=== PATIENT | female | born 1950 | race Caucasian/White ===

== ENCOUNTER → 2016-06-23 | Outpatient (CLI) | payer OTHER, MEDICARE ==
[~2016-06-23] MED LIST: ALEVE PO; AUGM875T27 PO; CITA20TA4 PO; GAS80CHW PO; NEUR300C PO; NEUR600T PO; NORC7.5T PO; NORCOTAB PO; ONDA1TAB15 PO; ONDA4INJ48 IM; SALI0.653; TYLE325T5 PO; ZYRT10TA2 PO; [UNRECOGNIZED DRUG - CODE] PO
--- NOTE | 2016-07-08 00:20 | ECWPNPC ---
PATIENT NAME: MITZY ESPINOZA : 1950 GENDER: FEMALE VISIT DATE: 06/23/2016 DISCHARGE DATE: 06/23/16 1148 VISIT LOCKED DATE TIME: PHYSICIAN: BRADY SANDOVAL RESOURCE: BRADY SANDOVAL REASON FOR APPOINTMENT 1. WC, BACK HISTORY OF PRESENT ILLNESS HISTORY OF PRESENT ILLNESS: PAIN THE PATIENT DESCRIBES THE PAIN... THE PATIENT DESCRIBES THE PAIN... THE PATIENT DESCRIBES THE PAIN... THE PATIENT DESCRIBES THE PAIN... MITZY IS A 65-YEAR-OLD FEMALE HERE FOR FOLLOW-UP AND MEDICINE MANAGEMENT OF CHRONIC LOW BACK PAIN. HAD LESI ON 09/04/2015. REPORTED SIGNIFICANT IMPROVEMENT IN PAIN POSTPROCEDURE UNTIL A FEW MOS AGO AND NOW PAIN IS 6/10 VAS. DESCRIBES PAIN RIGHT-SIDED LOW BACK PAIN THAT IS CONSTANT THROBBING AND TENDER. PAIN IS AGGRAVATED BY PROLONGED STANDING. PAIN IS RELIEVED WITH CURRENT MEDICINE REGIMEN OF HYDROCODONE 10/07/2024 PERIODICALLY AND GABAPENTIN 300 MG 1 IN THE MORNING, 1 AT 12 NOON AND 2 AT AT BEDTIME. CHRONIC PAIN WE ARE TREATING ON A REGULAR BASIS IS DUE TO WORK RELATED INJURY. DOI-2001. FALL RISK SCREENING: SCREENING :NO FALLS IN THE PAST YEAR CURRENT MEDICATIONS TAKING TUMS DIRECTED FOR HEARTBURN TAKING LISINOPRIL 20 MG TABLET 1 TABLET ORALLY ONCE A DAY TAKING GAS-X 80 MG TABLET CHEWABLE 1 TABLET AFTER MEALS AND AT BEDTIME NEEDED ORALLY FOUR TIMES A DAY TAKING GABAPENTIN 300 MG CAPSULE 1 CAPSULE ORALLY DIRECTED - 1 IN AM, 1 IN AFTERNOON, 2 AT BEDTIME TAKING HYDROCODONE-ACETAMINOPHEN 5-325 MG TABLET 1 TABLET P.O. Q6H PRN PAIN MDD2 NOT-TAKING ZOFRAN ODT 4 MG TABLET DISPERSIBLE 1 TAB(S) ORALLY TID PRN, NOTES: LAST DOSE 09/03/15 1330 NOT-TAKING ROLAIDS NOT-TAKING FLONASE 50 MCG/DOSE INHALER 1 SPRAY IN EACH NOSTRIL NASALLY BID NOT-TAKING ZYRTEC ALLERGY 10 MG TABLET 1 TABLET NEEDED ORALLY ONCE A DAY NOT-TAKING PATANOL 0.1 % SOLUTION 1 DROP INTO AFFECTED EYES BILATERALLY OPHTHALMIC TWICE A DAY NOT-TAKING CELEXA 10 MG TABLET 1 TAB(S) AT NIGHT ORALLY ONCE A DAY NOT-TAKING TRIAMCINOLONE ACETONIDE 0.1 % CREAM 1 APPLICATION TO AFFECTED AREAS BUTTOCKS, BELOW ABDOMEN, THIGHS EXTERNALLY TWICE A DAY UNTIL 2 DAYS AFTER RASH CLEARS NOT-TAKING CLOTRIMAZOLE 1 % CREAM 1 APPLICATION TO AFFECTED AREAS BUTTOCKS, BELOW ABDOMEN, THIGHS EXTERNALLY TWICE A DAY UNTIL 2 DAYS AFTER RASH CLEARS MEDICATION LIST REVIEWED AND RECONCILED WITH THE PATIENT PAST MEDICAL HISTORY CROHN'S DISEASE IBS ASTHMA HYPERTENSION MIGRAINES DEPRESSION ARTHRITIS 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 NEW PATIENT PAIN DIARY TODAY'S VISITNOTES FROM 0-10, WHAT LEVEL IS YOUR PAIN TODAY?0 PAIN CLINIC PFS, CLERGY, PUBLIC HEALTH REFERRALS PFS REFERRAL NEEDED?NO CLERGY REFERRAL NEEDED?NO PUBLIC HEALTH REFERRAL NEEDED?NO WAS THE PROVIDER NOTIFIED OF ANY PERTINENT INFO?NO PFS REFERRAL NEEDED?NO CLERGY REFERRAL NEEDED?NO PUBLIC HEALTH REFERRAL NEEDED?NO WAS THE PROVIDER NOTIFIED OF ANY PERTINENT INFO?NO REVIEW OF SYSTEMS CONSTITUTIONAL: ANY CHANGE IN YOUR MEDICAL CONDITION? NO . CHILLS NO . FEVER NO . INFECTION: DO YOU HAVE NEW INFECTIONS? NO . DO YOU HAVE HISTORY OF MRSA? NO . MUSCULOSKELETAL: ANY NEW PATTERNS OF PAIN OR NUMBNESS? NO . GASTROENTEROLOGY: ANY NEW CHANGE IN BOWEL CONTROL? NO . GENITOURINARY: ANY NEW CHANGE IN BLADDER CONTROL? NO . IS THERE A CHANCE YOU COULD BE ? NO . HEMATOLOGY/LYMPH: DO YOU TAKE ANY BLOOD THINNERS? (FOR EXAMPLE- COUMADIN, PLAVIX, AGGRENOX, PLATEL, PRADAXA, OR XARELTO) NO . WHEN WAS YOUR LAST DOSE? DATE: TIME: . NEUROLOGY: HAVE YOU FALLEN IN THE PAST 6 MONTHS? NO . ANY NEW EXTREMITY NUMBNESS OR WEAKNESS? NO . CARDIOLOGY: DO YOU HAVE A PACEMAKER OR DEFIBRILLATOR? NO . RESPIRATORY: HAVE YOU BEEN SICK IN THE PAST WEEK? YES, COUGH AND COLD . FEVER NO . FLU LIKE SYMPTOMS? NO . COUGH YES . INTEGUMENTARY: DO YOU HAVE ANY RASHES OR OPEN SORES? NO . ALLERGIC/IMMUNO: ARE YOU ALLERGIC TO SHELLFISH OR IV DYE? YES, SHRIMP . ANY NEW ALLERGIES? NO . PSYCHIATRIC: DO YOU HAVE THOUGHTS OF HURTING YOURSELF OR SOMEONE ELSE? NO . ARE YOU ABUSED, NEGLECTED, OR IN AN UNSAFE ENVIRONMENT? NO . ENDOCRINOLOGY: ARE YOU DIABETIC? NO . OTHER: DO YOU NEED ANY PRESCRIPTIONS? NO . IF YES, PLEASE LIST: ____ . ANY NEW PROBLEMS WITH YOUR MEDICATIONS? NO . WHEN DID YOU LAST EAT? ____ . WHEN DID YOU LAST DRINK? ____ . WHAT DID YOU LAST DRINK? ____ . NAME OF PERSON DRIVING YOU HOME? ____ . DO YOU HAVE ANY OTHER QUESTIONS OR CONCERNS NO . REVIEWED BY: PROVIDER: BRADY ANDRES . VITAL SIGNS WT 197.0 LBS, HT 63 IN, BMI 34.89 INDEX, BP 142/84 MM HG, HR 109 /MIN, RR 16 /MIN, TEMP 98.1 F, OXYGEN SAT % 100%, NA INITIALS SC 10:48, REVIEWED BY: CS. EXAMINATION GENERAL EXAMINATION: LUNGS:LUNG SOUNDS ARE CLEAR. HEART:HEART RATE REGULAR. MUSCULOSKELETAL:*. MUSCULOSKELETAL:*, MUSCLE STRENGTH TESTING 5/5 BILATERAL, PALPATION: POSITIVE FOR PAIN OVER L/S SPINE. POSITIVE FOR PAIN OVER L/S PARSPINALS. ASSESSMENTS LOW BACK PAIN OF OVER 3 MONTHS DURATION - M54.5 (PRIMARY) LUMBAR RADICULOPATHY - M54.16 CHRONIC PRESCRIPTION OPIATE USE - Z79.891 TREATMENT LOW BACK PAIN OF OVER 3 MONTHS DURATION CAUDAL/LUMBAR EPIDURAL NOTES: PATIENT REFUSED ANY INFORMATION REGUARDING LUMBAR EPIDURALS DUE TO THE FACT SHE HAS HAD EPIDURALS IN THE PAST. LUMBAR RADICULOPATHY CAUDAL/LUMBAR EPIDURAL PROCEDURES PN WORKMANS' COMP OPINION IN YOUR OPINION, WAS THE INCIDENT THAT THE PATIENT DESCRIBED THE COMPETENT MEDICAL CAUSE OF THIS INJURY/ILLNESS? YES ARE THE PATIENT'S COMPLAINTS CONSISTENT WITH HIS/HER HISTORY OF THE INJURY/ILLNESS? YES IS THE PATIENT'S HISTORY OF THE INJURY/ILLNESS CONSISTENT WITH YOUR OBJECTIVE FINDING? YES WHAT IS THE PERCENTAGE OF TEMPORARY IMPAIRMENT? MODERATE TO MARKED = 66.7% IS THE PATIENT WORKING? NO DOCTOR ON SITE: TAMIKA HUANG MD PROCEDURE CODES FA211 ESTABILISHED PATIENT [facility] FAC[facility] CHARGE FOLLOW UP 2WK POST (REASON: W/C LESI) ELECTRONICALLY SIGNED BY MCKENNA REARDON ON 07/07/2016 AT 05:04 PM EST DISCLAIMER : THIS IS A VISIT SUMMARY EXTRACTED FROM THE [employer] CHART. IT IS NOT A COPY OF THE [employer] PROGRESS NOTE. ANGIE
== END ==
LOC: M PAIN 10:40
PROVIDERS: ATTEND Nurse Practitioner Family
DX: M54.16 Radiculopathy, lumbar region (principal); G89.29 Other chronic pain; Z79.891 Long term (current) use of opiate analgesic; Z79.899 Other long term (current) drug therapy; Z91.013 Allergy to seafood; Z91.038 Other insect allergy status; Z91.09 Other allergy status, other than to drugs and biological substances

== ENCOUNTER → 2016-07-17 | Outpatient (CLI) | payer OTHER, MEDICARE ==
[~2016-07-17] MED LIST changes: +ISOVUE-M 300 61% 15ML VIAL (Q9967) As Ordered ONE; +LIDOCAINE 1% SDV INJ 30 ML VIAL As Ordered ONE; +methylPREDNISolone SUSP 40 MG/ML (DEPO-medrol) VIAL (J1030) As Ordered ONE
--- NOTE | 2016-07-17 13:01 | REP ---
Partial lumbar spine series: Three views. History: Lumbar epidural steroid injection for pain. 22 seconds of fluoroscopy time is reported. Findings: A sequence of three last image hold fluoroscopically obtained intraprocedural spot radiographs of the lumbar spine document needle position associated with lumbar epidural steroid injection. Signed by Anthony Christian MD 07/17/2016 02:59 P
--- NOTE | 2016-07-23 00:56 | ECWPNPC ---
PATIENT NAME: MITZY ESPINOZA : 1950 GENDER: FEMALE VISIT DATE: 07/17/2016 DISCHARGE DATE: 07/17/16 1213 VISIT LOCKED DATE TIME: PHYSICIAN: TAMIKA ANTONIO RESOURCE: TAMIKA ANTONIO REASON FOR APPOINTMENT 1. LUMBAR EPIDURAL HISTORY OF PRESENT ILLNESS HISTORY OF PRESENT ILLNESS: PAIN THE PATIENT DESCRIBES THE PAIN... FALL RISK SCREENING: SCREENING :TWO OR MORE FALLS WITH INJURY IN THE PAST YEAR CURRENT MEDICATIONS TAKING TUMS DIRECTED FOR HEARTBURN, NOTES: NONE RECENTLY TAKING LISINOPRIL 20 MG TABLET 1 TABLET ORALLY ONCE A DAY, NOTES: 07/17/16 023 TAKING GAS-X 80 MG TABLET CHEWABLE 1 TABLET AFTER MEALS AND AT BEDTIME NEEDED ORALLY FOUR TIMES A DAY, NOTES: 07/16/16 143 TAKING GABAPENTIN 300 MG CAPSULE 1 CAPSULE ORALLY DIRECTED - 1 IN AM, 1 IN AFTERNOON, 2 AT BEDTIME, NOTES: 07/17/16 023 TAKING HYDROCODONE-ACETAMINOPHEN 5-325 MG TABLET 1 TABLET P.O. Q6H PRN PAIN MDD2, NOTES: 07/17/16 0230 NOT-TAKING ZOFRAN ODT 4 MG TABLET DISPERSIBLE 1 TAB(S) ORALLY TID PRN, NOTES: LAST DOSE 09/03/15 1330 NOT-TAKING ROLAIDS NOT-TAKING FLONASE 50 MCG/DOSE INHALER 1 SPRAY IN EACH NOSTRIL NASALLY BID NOT-TAKING ZYRTEC ALLERGY 10 MG TABLET 1 TABLET NEEDED ORALLY ONCE A DAY NOT-TAKING PATANOL 0.1 % SOLUTION 1 DROP INTO AFFECTED EYES BILATERALLY OPHTHALMIC TWICE A DAY NOT-TAKING CELEXA 10 MG TABLET 1 TAB(S) AT NIGHT ORALLY ONCE A DAY NOT-TAKING TRIAMCINOLONE ACETONIDE 0.1 % CREAM 1 APPLICATION TO AFFECTED AREAS BUTTOCKS, BELOW ABDOMEN, THIGHS EXTERNALLY TWICE A DAY UNTIL 2 DAYS AFTER RASH CLEARS NOT-TAKING CLOTRIMAZOLE 1 % CREAM 1 APPLICATION TO AFFECTED AREAS BUTTOCKS, BELOW ABDOMEN, THIGHS EXTERNALLY TWICE A DAY UNTIL 2 DAYS AFTER RASH CLEARS MEDICATION LIST REVIEWED AND RECONCILED WITH THE PATIENT PAST MEDICAL HISTORY CROHN'S DISEASE IBS ASTHMA HYPERTENSION MIGRAINES DEPRESSION ARTHRITIS 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 NEW PATIENT PAIN DIARY TODAY'S VISITNOTES FROM 0-10, WHAT LEVEL IS YOUR PAIN TODAY?0 PAIN CLINIC PFS, CLERGY, PUBLIC HEALTH REFERRALS PFS REFERRAL NEEDED?NO CLERGY REFERRAL NEEDED?NO PUBLIC HEALTH REFERRAL NEEDED?NO WAS THE PROVIDER NOTIFIED OF ANY PERTINENT INFO?NO PFS REFERRAL NEEDED?NO CLERGY REFERRAL NEEDED?NO PUBLIC HEALTH REFERRAL NEEDED?NO WAS THE PROVIDER NOTIFIED OF ANY PERTINENT INFO?NO HOSPITALIZATION/MAJOR DIAGNOSTIC PROCEDURE ABOVE SURGERIES NUMEROUS HOSPITALIZATIONS FOR CROHN'S CHILDBIRTH X3 REVIEW OF SYSTEMS CONSTITUTIONAL: ANY CHANGE IN YOUR MEDICAL CONDITION? NO . CHILLS NO . FEVER NO . INFECTION: DO YOU HAVE NEW INFECTIONS? NO . DO YOU HAVE HISTORY OF MRSA? NO . MUSCULOSKELETAL: ANY NEW PATTERNS OF PAIN OR NUMBNESS? NO . GASTROENTEROLOGY: ANY NEW CHANGE IN BOWEL CONTROL? NO . GENITOURINARY: ANY NEW CHANGE IN BLADDER CONTROL? NO . IS THERE A CHANCE YOU COULD BE ? NO . HEMATOLOGY/LYMPH: DO YOU TAKE ANY BLOOD THINNERS? (FOR EXAMPLE- COUMADIN, PLAVIX, AGGRENOX, PLATEL, PRADAXA, OR XARELTO) NO . WHEN WAS YOUR LAST DOSE? DATE: TIME: . NEUROLOGY: HAVE YOU FALLEN IN THE PAST 6 MONTHS? YES . ANY NEW EXTREMITY NUMBNESS OR WEAKNESS? NO . CARDIOLOGY: DO YOU HAVE A PACEMAKER OR DEFIBRILLATOR? NO . RESPIRATORY: HAVE YOU BEEN SICK IN THE PAST WEEK? NO . FEVER NO . FLU LIKE SYMPTOMS? NO . COUGH NO . INTEGUMENTARY: DO YOU HAVE ANY RASHES OR OPEN SORES? NO . ALLERGIC/IMMUNO: ARE YOU ALLERGIC TO SHELLFISH OR IV DYE? NO . ANY NEW ALLERGIES? NO . PSYCHIATRIC: DO YOU HAVE THOUGHTS OF HURTING YOURSELF OR SOMEONE ELSE? NO . ARE YOU ABUSED, NEGLECTED, OR IN AN UNSAFE ENVIRONMENT? NO . ENDOCRINOLOGY: ARE YOU DIABETIC? NO . OTHER: DO YOU NEED ANY PRESCRIPTIONS? NO . IF YES, PLEASE LIST: ____ . ANY NEW PROBLEMS WITH YOUR MEDICATIONS? NO . WHEN DID YOU LAST EAT? 1830 . WHEN DID YOU LAST DRINK? 2299 . WHAT DID YOU LAST DRINK? WATER . NAME OF PERSON DRIVING YOU HOME? VIRGILIO KAUFMAN . DO YOU HAVE ANY OTHER QUESTIONS OR CONCERNS NO . REVIEWED BY: PROVIDER: . VITAL SIGNS WT 197 LBS, HT 63 IN, BMI 34.89 INDEX, BP 155/84 MM HG, HR 85 /MIN, RR 16 /MIN, TEMP 97.9 F, OXYGEN SAT % 96, NA INITIALS TL 1048, REVIEWED BY: LS. ASSESSMENTS INTERVERTEBRAL DISC DISORDERS WITH RADICULOPATHY, LUMBOSACRAL REGION - M51.17 (PRIMARY) TREATMENT OTHERS REFILL HYDROCODONE-ACETAMINOPHEN TABLET, 5-325 MG, 1 TABLET, P.O., Q6H PRN PAIN MDD2, 30 DAY(S), 60, REFILLS 0, NOTES: 07/17/16 0230 PROCEDURES PRE PROCEDURE DIAGNOSIS LUMBOSACRAL DISC DISORDER WITH RADICULOPATHY, LUMBOSACRAL RADICULOPATHY POST PROCEDURE DIAGNOSIS LUMBOSACRAL RADICULOPATHY , LUMBOSACRAL DISC DISORDER WITH RADICULOPATHY PROCEDURE L5-S1 EPIDURAL STEROID INJECTION UNDER FLUOROSCOPIC GUIDANCE SURGEON DR. TAMIKA ANTONIO FIRE CAPTAIN MARINE NONE ANESTHESIA LOCAL PRE PROCEDURE NOTE THE PATIENT HAS A HISTORY OF CHRONIC LOW BACK PAIN. I EVALUATE THE PATIENT AND REVIEWED THE CHART. I WENT OVER THE RISKS, ALTERNATIVES, AND BENEFITS ASSOCIATED WITH THIS PROCEDURE. THE PATIENT WOULD LIKE TO PROCEED AND GIVE CONSENT TO PERFORMED THE PROCEDURE. THE PATIENT DENIES UNEXPLAINABLE WEIGHT LOSS, FEVER, CHILLS, OR NEW CHANGES IN URINARY OR BOWEL CONTROL. DESCRIPTION OF PROCEDURE THE PATIENT WAS BROUGHT TO THE PROCEDURE ROOM AND PLACED IN THE PRONE POSITION. THE LUMBOSACRAL AREA WAS CLEANED WITH BETADINE SOLUTION AND DRAPED ASEPTICALLY. THE PROCEDURE WAS DONE UNDER STERILE CONDITIONS. I CHECKED LATERALITY AND THE LEVEL WHERE THE PROCEDURE WAS GOING TO BE PERFORMED WITH THE PATIENT AND THE SUPPORTING STAFF AT THE MOMENT OF THE TIME OUT IN THE PROCEDURE ROOM. UNDER FLUOROSCOPIC GUIDANCE, THE TARGET POINT WAS SELECTED AT THE INTERLAMINAR LEVEL OF L5-S1. LIDOCAINE WAS USED TO NUMB THE SKIN AND THE SUBCUTANEOUS TISSUE BELOW IT. EPIDURAL TUOHY NEEDLE, 17-GAUGE, WAS ADVANCED UNDER FLUOROSCOPIC GUIDANCE AND FOLLOWING PATIENT FEEDBACK UNTIL THE EPIDURAL SPACE WAS REACHED, 7 CM DEEP INTO THE SKIN BY THE LOSS OF RESISTANCE TECHNIQUE. ISOVUE M DYE 30%, 0.25 ML, WAS INJECTED SHOWING ADEQUATE SPREAD OF THE DYE. THEN, A SOLUTION OF 3 ML OF NORMAL SALINE WITH DEPO-MEDROL 60 MG WAS INJECTED SLOWLY FOLLOWING PATIENT FEEDBACK. THERE WAS NO EVIDENCE OF BLOOD, PARESTHESIA OR CEREBROSPINAL FLUID DURING THE PROCEDURE. THE PATIENT WAS SENT TO THE RECOVERY ROOM. THE PATIENT WAS MOVING THE EXTREMITIES AND DOING WELL. THERE WAS NO COMPLICATION DURING THE PROCEDURE. FLUOROSCOPY TIME WAS 22 SECONDS. POST PROCEDURE NOTE THE PATIENT WILL BE SEEN IN A FOLLOW UP IN THE NEXT FEW WEEKS. INSTRUCTIONS WERE GIVEN, QUESTIONS WERE ANSWERED, AND THE PATIENT EXPRESSED UNDERSTANDING AND AGREES WITH THE PLAN. INSTRUCTIONS WERE GIVEN, QUESTIONS WERE ANSWERED, PATIENT REPORTS UNDERSTANDING AND AGREES WITH THE PLAN. I, JOSH ESTRADA, DOCUMENTED THE ABOVE INFORMATION ACTING A SCRIBE FOR DR. ANTONIO. I HAVE REVIEWED THE ABOVE DOCUMENT, WRITTEN BY JOSH ESTRADA SCRIBApolinar AND I VERIFY THAT IT IS ACCURATE. PN WORKMANS' COMP OPINION IN YOUR OPINION, WAS THE INCIDENT THAT THE PATIENT DESCRIBED THE COMPETENT MEDICAL CAUSE OF THIS INJURY/ILLNESS? YES ARE THE PATIENT'S COMPLAINTS CONSISTENT WITH HIS/HER HISTORY OF THE INJURY/ILLNESS? YES IS THE PATIENT'S HISTORY OF THE INJURY/ILLNESS CONSISTENT WITH YOUR OBJECTIVE FINDING? YES WHAT IS THE PERCENTAGE OF TEMPORARY IMPAIRMENT? MODERATE TO MARKED = 66.7% IS THE PATIENT WORKING? NO DOCTOR ON SITE: TAMIKA HUANG MD DIAGNOSTIC IMAGING [facility] FLUORO GUIDE SPINE INJECTION (PAIN)[id number] PROCEDURE CODES 98825 LUMBAR/SACRAL W/ IMAGING 6045F RADXPS IN END [id number] PXD FOLLOW UP 3 WEEKS ELECTRONICALLY SIGNED BY TAMIKA ANTONIO MD ON 07/21/2016 AT 01:45 PM EST DISCLAIMER : THIS IS A VISIT SUMMARY EXTRACTED FROM THE [employer] CHART. IT IS NOT A COPY OF THE [employer] PROGRESS NOTE. MTDD
== END ==
LOC: M PAIN 11:10
PROVIDERS: ATTEND Anesthesiology
DX: G89.29 Other chronic pain (principal); M51.17 Intervertebral disc disorders with radiculopathy, lumbosacral region; M48.06 Spinal stenosis, lumbar region; I10 Essential (primary) hypertension; J45.909 Unspecified asthma, uncomplicated; K50.90 Crohn's disease, unspecified, without complications; F32.9 Major depressive disorder, single episode, unspecified; M16.0 Bilateral primary osteoarthritis of hip; Z87.81 Personal history of (healed) traumatic fracture; Z79.899 Other long term (current) drug therapy; Z91.030 Bee allergy status; Z91.013 Allergy to seafood
CPT/HCPCS: 62323; J1030; Q9967

== ENCOUNTER → 2016-08-14 | Outpatient (CLI) | payer OTHER, MEDICARE ==
[~2016-08-14] MED LIST changes: -ISOVUE-M 300 61% 15ML VIAL (Q9967) As Ordered ONE; -LIDOCAINE 1% SDV INJ 30 ML VIAL As Ordered ONE; -methylPREDNISolone SUSP 40 MG/ML (DEPO-medrol) VIAL (J1030) As Ordered ONE
--- NOTE | 2016-08-22 23:37 | ECWPNPC ---
PATIENT NAME: MITZY ESPINOZA : 1950 GENDER: FEMALE VISIT DATE: 08/14/2016 DISCHARGE DATE: 08/14/16 1237 VISIT LOCKED DATE TIME: PHYSICIAN: TAMIKA ANTONIO RESOURCE: TAMIKA ANTONIO REASON FOR APPOINTMENT 1. LOW BACK PAINW/C HISTORY OF PRESENT ILLNESS HISTORY OF PRESENT ILLNESS: PAIN THE PATIENT DESCRIBES THE PAIN... 66 YEAR OLD FEMALE PATIENT WITH HISTORY OF CHRONIC LOW BACK PAIN. PATIENT DESCRIBES THE PAIN ACHING, BURNING, TENDER, THROBBING, SORE, AND HAVING IT ALL THE TIME WITH A PAIN SCORE OF 6/10. PATIENT WAS INJURED IN A WORKED RELATED INJURY IN MARCH OF 2001 WHEN SHE WAS PULLING A PATIENT AND FELL. MRS. ESPINOZA RECEIVED A LUMBAR EPIDURAL ON 07/17/16 AND STATES THAT THE INJECTION DECREASED HER PAIN AND INCREASED HER MOBILITY AND FUNCTIONALITY. CURRENTLY THE PATIENT IS USING GABAPENTIN AND HYDROCODONE AND STATES THAT IT DOES AID IN PAIN RELIEF AND KEEPS HER FUNCTIONAL. MRS. ESPINOZA STATES THAT ANY TYPE OF ACTIVITY INCREASES HER PAIN AND THAT REST, MEDICATIONS, AND INTERVENTIONS AID IN PAIN RELIEF. PATIENT DENIES UNEXPLAINABLE WEIGHT LOSS, FEVER, CHILLS, NEW CHANGES ON HER URINARY OR BOWEL CONTROL. FALL RISK SCREENING: SCREENING :NO FALLS IN THE PAST YEAR CURRENT MEDICATIONS TAKING TUMS DIRECTED FOR HEARTBURN, NOTES: NONE RECENTLY TAKING LISINOPRIL 20 MG TABLET 1 TABLET ORALLY ONCE A DAY, NOTES: 07/17/16 023 TAKING GAS-X 80 MG TABLET CHEWABLE 1 TABLET AFTER MEALS AND AT BEDTIME NEEDED ORALLY FOUR TIMES A DAY, NOTES: 07/16/16 1430 TAKING GABAPENTIN 300 MG CAPSULE 1 CAPSULE ORALLY DIRECTED - 1 IN AM, 1 IN AFTERNOON, 2 AT BEDTIME, NOTES: 07/17/16 023 TAKING HYDROCODONE-ACETAMINOPHEN 5-325 MG TABLET 1 TABLET P.O. Q6H PRN PAIN MDD2, NOTES: 07/17/16 023 NOT-TAKING ZOFRAN ODT 4 MG TABLET DISPERSIBLE 1 TAB(S) ORALLY TID PRN, NOTES: LAST DOSE 09/03/15 1330 NOT-TAKING ROLAIDS NOT-TAKING FLONASE 50 MCG/DOSE INHALER 1 SPRAY IN EACH NOSTRIL NASALLY BID NOT-TAKING ZYRTEC ALLERGY 10 MG TABLET 1 TABLET NEEDED ORALLY ONCE A DAY NOT-TAKING PATANOL 0.1 % SOLUTION 1 DROP INTO AFFECTED EYES BILATERALLY OPHTHALMIC TWICE A DAY NOT-TAKING CELEXA 10 MG TABLET 1 TAB(S) AT NIGHT ORALLY ONCE A DAY NOT-TAKING TRIAMCINOLONE ACETONIDE 0.1 % CREAM 1 APPLICATION TO AFFECTED AREAS BUTTOCKS, BELOW ABDOMEN, THIGHS EXTERNALLY TWICE A DAY UNTIL 2 DAYS AFTER RASH CLEARS NOT-TAKING CLOTRIMAZOLE 1 % CREAM 1 APPLICATION TO AFFECTED AREAS BUTTOCKS, BELOW ABDOMEN, THIGHS EXTERNALLY TWICE A DAY UNTIL 2 DAYS AFTER RASH CLEARS MEDICATION LIST REVIEWED AND RECONCILED WITH THE PATIENT PAST MEDICAL HISTORY CROHN'S DISEASE IBS ASTHMA HYPERTENSION MIGRAINES DEPRESSION ARTHRITIS 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 SOCIAL HISTORY GENERAL: TOBACCO USE ARE YOU A:NONSMOKER LEARNING BARRIERS / SPECIAL NEEDS ORIENTED TO PLAN OF CARE: PATIENT, PAIN MANAGEMENT PATIENT, ORIENTED TO PLAN OF CARE: PATIENT, PAIN MANAGEMENT PATIENT. NEW PATIENT PAIN DIARY TODAY'S VISITNOTES FROM 0-10, WHAT LEVEL IS YOUR PAIN TODAY?0 PAIN CLINIC PFS, CLERGY, PUBLIC HEALTH REFERRALS PFS REFERRAL NEEDED?NO CLERGY REFERRAL NEEDED?NO PUBLIC HEALTH REFERRAL NEEDED?NO WAS THE PROVIDER NOTIFIED OF ANY PERTINENT INFO?NO PFS REFERRAL NEEDED?NO CLERGY REFERRAL NEEDED?NO PUBLIC HEALTH REFERRAL NEEDED?NO WAS THE PROVIDER NOTIFIED OF ANY PERTINENT INFO?NO HOSPITALIZATION/MAJOR DIAGNOSTIC PROCEDURE ABOVE SURGERIES NUMEROUS HOSPITALIZATIONS FOR CROHN'S CHILDBIRTH X3 REVIEW OF SYSTEMS CONSTITUTIONAL: ANY CHANGE IN YOUR MEDICAL CONDITION? NO . CHILLS NO . FEVER NO . INFECTION: DO YOU HAVE NEW INFECTIONS? NO . DO YOU HAVE HISTORY OF MRSA? NO . MUSCULOSKELETAL: ANY NEW PATTERNS OF PAIN OR NUMBNESS? NO . GASTROENTEROLOGY: ANY NEW CHANGE IN BOWEL CONTROL? NO . GENITOURINARY: ANY NEW CHANGE IN BLADDER CONTROL? NO . IS THERE A CHANCE YOU COULD BE ? NO . HEMATOLOGY/LYMPH: DO YOU TAKE ANY BLOOD THINNERS? (FOR EXAMPLE- COUMADIN, PLAVIX, AGGRENOX, PLATEL, PRADAXA, OR XARELTO) NO . WHEN WAS YOUR LAST DOSE? DATE: TIME: . NEUROLOGY: HAVE YOU FALLEN IN THE PAST 6 MONTHS? NO . ANY NEW EXTREMITY NUMBNESS OR WEAKNESS? NO . CARDIOLOGY: DO YOU HAVE A PACEMAKER OR DEFIBRILLATOR? NO . RESPIRATORY: HAVE YOU BEEN SICK IN THE PAST WEEK? YES PT STATES SHE HAS BEEN ILL WITH NAUSEA/VOMITING, DIARRHEA, CHILLS, COUGHING, NASAL CONGESTION. FEELS THAT IT IS RESOLVING . FEVER NO . FLU LIKE SYMPTOMS? NO . COUGH NO . INTEGUMENTARY: DO YOU HAVE ANY RASHES OR OPEN SORES? NO . ALLERGIC/IMMUNO: ARE YOU ALLERGIC TO SHELLFISH OR IV DYE? NO . ANY NEW ALLERGIES? NO . PSYCHIATRIC: DO YOU HAVE THOUGHTS OF HURTING YOURSELF OR SOMEONE ELSE? NO . ARE YOU ABUSED, NEGLECTED, OR IN AN UNSAFE ENVIRONMENT? NO . ENDOCRINOLOGY: ARE YOU DIABETIC? NO . OTHER: DO YOU NEED ANY PRESCRIPTIONS? YES GABAPENTIN . IF YES, PLEASE LIST: ____ . ANY NEW PROBLEMS WITH YOUR MEDICATIONS? NO . WHEN DID YOU LAST EAT? ____ . WHEN DID YOU LAST DRINK? ____ . WHAT DID YOU LAST DRINK? ____ . NAME OF PERSON DRIVING YOU HOME? ____ . DO YOU HAVE ANY OTHER QUESTIONS OR CONCERNS NO . REVIEWED BY: PROVIDER: TAMIKA ANTONIO MD . VITAL SIGNS WT 203.4 LBS, HT 63 IN, BMI 36.03 INDEX, BP 137/72 MM HG, HR 88 /MIN, RR 18 /MIN, TEMP 98.1 F, OXYGEN SAT % 98, SAFE IN ENV? (Y/N) YES, NA INITIALS TL 1020, REVIEWED BY: LASWEIGHED PT ON PMC SCALE- TL. EXAMINATION : PATIENT IS ALERT O X 3 AND COOPERATIVE. TENDERNESS IN THE LOWER BACK AND PARASPINAL MUSCLE GROUP. LUMBAR MRI DONE ON 12/22/13 SHOWS DISC BULGE AT L3-L4 AND L5-S1, CANAL STENOSIS L4-L5, AND FACET HYPERTROPHY. ASSESSMENTS INTERVERTEBRAL DISC DISORDERS WITH RADICULOPATHY, LUMBAR REGION - M51.16 (PRIMARY) LOW BACK PAIN OF OVER 3 MONTHS DURATION - M54.5 INTERVERTEBRAL DISC DISORDERS WITH RADICULOPATHY, LUMBOSACRAL REGION - M51.17 TREATMENT INTERVERTEBRAL DISC DISORDERS WITH RADICULOPATHY, LUMBAR REGION NOTES: WE DISCUSSED SEVERAL ISSUES WITH MR. ESPINOZA'S PAIN MANAGEMENT CASE. AT THIS TIME THE PATIENT WITH CONTINUE WITH THE SAME MEDICATION REGIME BEFORE. PATIENT WILL CONTINUE TO USE HYDROCODONE FOR THE SOMATIC PAIN AND THE GABAPENTIN FOR THE NEUROPATHIC PAIN. PATIENT DENIES ABUSE OF ANY MEDICATION, DENIES USE OF ILLEGAL SUBSTANCES, AND STATES SHE IS ONLY USING THE MEDICATION FOR PAIN MANAGEMENT. URINE TOXICOLOGY REPORT DONE ON 06/23/16 SHOWS CONSISTENT RESULTS WITH THE PATIENTS MEDICATIONS LIST. AT THIS TIME WE WILL NOT HOLD ANY INTERVENTIONS THE LUMBAR EPIDURAL DECREASED THE PATIENT'S PAIN AND INCREASED HER MOBILITY AND FUNCTIONALITY. PATIENT WILL RETURN TO THE CLINIC IN 2 MONTHS BUT WAS ADVISED TO CALL IS PAIN SIGNIFICANTLY WORSENS. INSTRUCTIONS WERE GIVEN, QUESTIONS WERE ANSWERED, PATIENT REPORTS UNDERSTANDING AND AGREES WITH THE PLAN. I, JAYSHREE KIM, DOCUMENTED THE ABOVE INFORMATION ACTING A SCRIBE FOR DR. ANTONIO. I HAVE REVIEWED THE ABOVE DOCUMENT, WRITTEN BY JAYSHREE SOLIS AND I VERIFY THAT IT IS ACCURATE. LOW BACK PAIN OF OVER 3 MONTHS DURATION REFILL GABAPENTIN CAPSULE, 300 MG, 1 CAPSULE, ORALLY, DIRECTED - 1 IN AM, 1 IN AFTERNOON, 2 AT BEDTIME, 30 DAY(S), 120, REFILLS 2, NOTES: 07/17/16 023 OTHERS REFILL HYDROCODONE-ACETAMINOPHEN TABLET, 5-325 MG, 1 TABLET, P.O., Q6H PRN PAIN MDD2, 30 DAY(S), 60, REFILLS 0, NOTES: 07/17/16229 PROCEDURE CODES FA211 ESTABILISHED PATIENT [facility] FACILITY CHARGE G8427 DOC MEDS VERIFIED W/PT OR RE G8730 PAIN ASSESS POS TOOL F/U PLAN DOC DISPOSITION & COMMUNICATION FOLLOW UP 2 MONTHS ELECTRONICALLY SIGNED BY TAMIKA ANTONIO MD ON 08/22/2016 AT 09:28 PM EDT DISCLAIMER : THIS IS A VISIT SUMMARY EXTRACTED FROM THE [facility] CHART. IT IS NOT A COPY OF THE [facility] PROGRESS NOTE. ANGIE
== END ==
LOC: M PAIN 10:40
PROVIDERS: ATTEND Anesthesiology
DX: M51.16 Intervertebral disc disorders with radiculopathy, lumbar region (principal); M54.5 Low back pain; M51.17 Intervertebral disc disorders with radiculopathy, lumbosacral region; G89.29 Other chronic pain; Z79.891 Long term (current) use of opiate analgesic; Z79.899 Other long term (current) drug therapy; Z91.030 Bee allergy status; Z91.013 Allergy to seafood; J30.2 Other seasonal allergic rhinitis; K50.90 Crohn's disease, unspecified, without complications; J32.9 Chronic sinusitis, unspecified; F32.9 Major depressive disorder, single episode, unspecified; G43.909 Migraine, unspecified, not intractable, without status migrainosus; M19.90 Unspecified osteoarthritis, unspecified site